=== PATIENT | female | born 1950 | race Two or more races ===

== ENCOUNTER → 2025-03-20 | Emergency (ER) | payer OTHER ==
[~2025-03-20] VITALS: Ht 144.8 cm; Wt 88.0 kg
[~2025-03-20] MED LIST: SALINE MIST45 ML
[2025-03-20 11:51] VITALS: BP 91/60; O2SAT 98
[2025-03-20 14:30] LABS: BASO % 0.2 % (0.1-1.2); EOS # 0.11 (0.04-0.54); EOS % 1.0 % (0.7-7.0); LYMPH # 3.39 (1.18-3.74); LYMPH % 31.5 % (19.3-53.1); MEAN PLATELET VOLUME 10.00 fl (9.4-12.4); MONO # 0.84 (0.24-0.82); MONO % 7.8 % (4.7-12.5); NEUT # 6.37 (1.56-6.13); NEUT % 59.2 % (34.0-71.1); RED CELL DISTRIBUTION WIDTH 12.5 % (11.6-14.4)
[2025-03-20 15:08] LABS: ALT/SGPT 30.0 U/L (12-78); AST/SGOT 21.0 U/L (15-37); BILIRUBIN TOTAL 0.34 mg/dL (0.3-1.2); BUN CREA RATIO 23.0 (7.0-25.0); CREATININE SERUM 0.73 mg/dL (0.55-1.02); GFR 77.72; GLOBULINA 4.4 G/DL (2.4-3.5); GLUCOSE FASTING 102.0 mg/dL (65-100); OSMOLALITY SERUM 283.0 MOSM/KG (275-295)
[2025-03-20 18:25] LABS: COVID-19 AG NEGATIVE (NEGATIVE)
== END | disposition left against medical advice (07) ==
LOC: ER 11:31
PROVIDERS: Preventive Medicine Public Health & General Preventive Medicine
DX: R00.2 Palpitations (principal); R53.81 Other malaise; Z20.822 Contact with and (suspected) exposure to COVID-19; Z88.8 Allergy status to other drugs, medicaments and biological substances

== ENCOUNTER 2025-03-26 13:39 | Emergency (ER) | payer OTHER ==
[~2025-03-26] VITALS: Ht 144.8 cm; Wt 88.0 kg
[2025-03-26 14:49] VITALS: BP 146/78; O2SAT 99
[2025-03-26] MEDS ORDERED: DEXAMETHASONE SODIUM PHOSPHATE 4 MG/ML VIAL IM ONE (15:30)
[2025-03-26] MEDS ORDERED: ORPHENADRINE CITRATE 30 MG/ML AMPUL IM ONE (15:30)
[2025-03-26] MEDS ORDERED: ACETAMINOPHEN 500 MG GEL..CAP PO ONE ×2 (15:30→15:58)
[2025-03-26] MEDS ORDERED: ORPHENADRINE CITRATE 30 MG/ML AMPUL ONE (15:58)
[2025-03-26] MEDS ORDERED: DEXAMETHASONE SODIUM PHOSPHATE 4 MG/ML VIAL ONE (15:58)
[2025-03-26] MEDS ORDERED: NORFLEX100MG PO (21:41)
[2025-03-26] MEDS ORDERED: MEDROLPACK PO (21:41)
== END 2025-03-26 22:36 ==
LOC: ER 13:39
DX: S39.82XA Other specified injuries of lower back, initial encounter (principal); W10.8XXA Fall (on) (from) other stairs and steps, initial encounter; Y93.89 Activity, other specified; Y92.098 Other place in other non-institutional residence as the place of occurrence of the external cause; Y99.8 Other external cause status; M54.2 Cervicalgia; M54.50 Low back pain, unspecified; I10 Essential (primary) hypertension; Z88.1 Allergy status to other antibiotic agents
CPT/HCPCS: 71111; 72040; 72131; 72170; 73590; 96372; 99284; J1100; J2360